=== PATIENT | female | born 2000 | race African-American/Black ===

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

== ENCOUNTER 2023-02-16 21:08 | Emergency (ER) | payer BC, MEDICAID ==
[~2023-02-16] VITALS: Ht 152.4 cm; Wt 77.1 kg
[2023-02-16 21:35] VITALS: BP 98/7; PULSE 90; RESP 17; TEMP 97.6; O2SAT 94
--- NOTE | 2023-02-16 21:38 | NUR ---
TO LOBBY A/W BED AMBULATORY
== END 2023-02-17 00:57 | disposition left against medical advice (07) ==
LOC: MED 21:08
DX: R11.10 Vomiting, unspecified (principal); R10.84 Generalized abdominal pain; Z53.21 Procedure and treatment not carried out due to patient leaving prior to being seen by health care provider
CPT/HCPCS: 81025; 99281